=== PATIENT | male | born 1945 | race Caucasian/White ===

== ENCOUNTER → 2019-10-04 12:35 | Outpatient (CLI) | payer MEDICARE, OTHER, SELFPAY ==
--- NOTE | 2019-10-04 12:43 | US_ITS ---
PROCEDURE: US FNA THYROID CLINICAL INDICATION: LT LOBE NODULE COMPARISON: Thyroid from 09/16/2019 TECHNIQUE: Following obtaining informed consent, using aseptic technique and local anesthesia with buffered lidocaine, fine-needle aspiration was performed of the nodule of interest using sonographic guidance. 3 passes were made into the nodule with a 25-gauge needle. Specimen was given to cytology. FINDINGS: CYTOLOGY: Negative for malignant cells IMPRESSION: Uneventful ultrasound-guided fine needle aspiration of the left lobe of the thyroid gland nodule negative for malignant cells. Please see cytology report for further recommendations The patient tolerated the procedure well without evidence of immediate complications and left the ultrasound suite in stable condition. Dictated by: Bishop Denton MD 10/07/2019 11:09 Electronically signed by Bishop Denton MD in [place] 10/07/2019 11:09
== END ==
PROVIDERS: PCP Family Medicine; Visit Provider Otolaryngology
DX: E04.1 Nontoxic single thyroid nodule (principal)
CPT/HCPCS: 10005; 76942; 88172; 88305